=== PATIENT | male | born 1995 | race Hispanic/Latino ===

== ENCOUNTER 2019-07-07 09:07 | Emergency (ER) | payer OTHER, SELFPAY ==
[2019-07-07 09:27] VITALS: BP 138/84; PULSE 95; RESP 16; TEMP 36.6; O2SAT 99; BMI 35.9
--- NOTE | 2019-07-07 09:50 | ED.URI ---
HPI - URI/Sore Throat General Chief Complaint: Upper Respiratory Symptoms Stated Complaint: Sore throat Time Seen by Provider: 07/07/19 09:39 Source: patient and family Mode of arrival: Ambulatory Limitations: no limitations History of Present Illness HPI Narrative: Patient is a 23-year-old male who presents with sore throat which started last evening at 11:00 p.m.. He has had strep before and previously had white spots in the back this throat he looked in his throat he thought he saw some white spots. It hurts every time he swallows. Denies cough fever or chills. Complaint: sore throat Onset (ago): hour(s) (11) Duration: constant Relieving factors: nothing Exacerbating factors: nothing Related Data Previous Rx's Medication Instructions Recorded ibuprofen 600 mg PO Q6HP PRN #20 tab 10/28/16 Allergies Allergy/AdvReac Type Severity Reaction Status Date / Time No Known Allergies Allergy Uncoded 12/06/17 12:42 Review of Systems Review of Systems Narrative: GENERAL: Denies chills, fatigue, malaise, fever, sweats, travel HEENT: See HPI RESPIRATORY: Denies dyspnea, cough, wheezing, hemoptysis, sputum. CARDIOVASCULAR: Denies chest pain, palpitations, orthopnea, edema GASTROINTESTINAL: Denies nausea, vomiting, abdominal pain, diarrhea, constipation, melena. : Denies dysuria, frequency, incontinence, hematuria, urinary retention, flank pain. MUSCULOSKELETAL: Denies weakness, joint pain, or bony pain SKIN: No rash, no erythema, no pruritus NEUROLOGIC: Denies weakness, dizziness, headache, numbness, change in speech, confusion PSYCHIATRIC: No concerning psychosocial issues. 12 point review of systems is negative except for those stated above and HPI Patient History Medical History Patient denies medical problems (Acute) Social History Smoking Status: Never smoker Substance Use Type: does not use Exam Initial Vital Signs Initial Vital Signs: Vital Signs Temperature 97.9 F 07/07/19 09:27 Pulse Rate 95 H 07/07/19 09:27 Respiratory Rate 16 07/07/19 09:27 Blood Pressure 138/84 07/07/19 09:27 Pulse Oximetry 99 07/07/19 09:27 GENERAL: Well-appearing, well-nourished and in no acute distress. HEENT: Head atraumatic,EOMI, pupils reactive PHARYNX: Erythematous no exudate noted uvula deviation CARDIOVASCULAR: Regular rate and rhythm without murmurs, rubs or gallops. RESPIRATORY: Breath sounds equal bilaterally, no wheezes rales or rhonchi. ABDOMEN: Soft, nontender. Normoactive bowel sounds all 4 quadrants. No guarding or rebound. EXTREMITIES: Normal range of motion, no clubbing or edema. Neurovascularly intact NEUROLOGICAL: Alert and oriented x4.Normal gait and speech. SKIN: Warm, dry, no laceration, no petechiae, no rashes or lesions. Course Vital Signs Vital signs: Vital Signs - 8 hr 07/07/19 09:27 07/07/19 10:40 Temperature 97.9 F Pulse Rate 95 H 89 Respiratory Rate 16 16 Blood Pressure 138/84 130/84 Pulse Oximetry 99 100 MDM - URI/Sore Throat Lab Data Labs: Point of Care Testing Rapid Strep A Negative Discharge Plan Departure Patient Disposition: Home Clinical Impression: Pharyngitis Qualifiers: Pharyngitis/tonsillitis etiology: unspecified etiology Qualified Code(s): J02.9 - Acute pharyngitis, unspecified Discharge Date/Time: 07/07/19 10:41 Instructions: DI for Pharyngitis/Tonsillopharyngitis -- Adult Activity Restrictions/Additional Instructions: *You have been diagnosed with pharyngitis *What to do: Increase fluid intake, rest, fever control Tylenol or ibuprofen as directed at this time no indication for antibiotics *Continue to take medications as directed Ibuprofen 800 mg every 8 hours as needed for pain Tylenol 1000 mg every 6 hours if needed for pain or fever do not exceed more than 4000 mg in 24 hours *Follow up with your primary care provider in 2-3 days *Return to ER if you should have inability to swallow, increasing or any new, worsening or concerning symptoms Prescriptions: No Action ibuprofen 600 MG tablet 600 mg PO Q6HP PRNQty: 20 RF: 0 Referrals: [facility] [Provider Group]
[2019-07-07 10:40] VITALS: BP 130/84; PULSE 89; RESP 16; O2SAT 100
== END 2019-07-07 10:41 | disposition home or self-care (01) ==
PROVIDERS: Emergency Provider Emergency Medicine
DX: J02.9 Acute pharyngitis, unspecified (principal)
CPT/HCPCS: 87880; 99282